=== PATIENT | male | born 1945 | race Caucasian/White ===

== ENCOUNTER 2018-08-28 09:40 | Outpatient (CLI) | payer OTHER | END 2018-08-28 18:43 | disposition home or self-care (01) | LOC: LAB 09:40 | DX: D12.2 Benign neoplasm of ascending colon (principal); K92.1 Melena; Z86.010 Personal history of colon polyps ==

== ENCOUNTER 2018-09-05 08:00 | Outpatient (CLI) | payer OTHER | END 2018-09-05 08:10 | disposition home or self-care (01) | LOC: LAB 08:00 | DX: I10 Essential (primary) hypertension (principal); E78.89 Other lipoprotein metabolism disorders; M54.5 Low back pain; E55.9 Vitamin D deficiency, unspecified; E11.9 Type 2 diabetes mellitus without complications; E66.8 Other obesity; E11.51 Type 2 diabetes mellitus with diabetic peripheral angiopathy without gangrene; E11.42 Type 2 diabetes mellitus with diabetic polyneuropathy; E11.65 Type 2 diabetes mellitus with hyperglycemia ==

== ENCOUNTER 2018-09-13 06:00 | Day surgery (SDC) | payer OTHER | END 2018-09-13 12:20 | disposition home or self-care (01) | LOC: AMB-ENDOS 06:00 | DX: K63.5 Polyp of colon (principal); K64.1 Second degree hemorrhoids ==

== ENCOUNTER 2019-12-08 09:44 | Outpatient (CLI) | payer OTHER | END 2019-12-08 11:49 | disposition home or self-care (01) | LOC: RAD 09:44 | DX: J41.0 Simple chronic bronchitis (principal) ==